=== PATIENT | male | born 1980 | race Caucasian/White ===

== ENCOUNTER 2016-09-29 09:46 | Inpatient (IN) | payer OTHER ==
[~2016-09-29] VITALS: Ht 190.5 cm; Wt 166.7 kg
--- NOTE | ~2016-09-29 | HC ---
[facility] [place] [address] CONSULTATION Name: SILVANOBRENT BOSTON Room #: 437-P ADM IN M.R.#: [id number] Admission: 09/29/16 Attend Phys: Lisandra Castillo MD Discharge: Date of : 84 Report #: [id number] THIS REPORT FOR: //name// CC: Lisandra Mullins REASON FOR CONSULTATION: I was asked to evaluate concerning complicated left lung pneumonia. HISTORY OF PRESENT ILLNESS: The patient was a 36-year-old diagnosed with community-acquired pneumonia on 09/25/2016 at [facility]. He noted that 2 weeks prior to this, he has had what he felt was the flu fluid with low grade fever for a day, associated with a nonproductive cough. He did improve from this only to have acute worsening on 09/25/2016 with shortness of breath and pleuritic chest pain. It was noted that his had similar symptoms at the onset with upper respiratory tract infection. He has had no travel. No HIV risk factors. He has had no immunizations for flu or pneumonia. No tuberculosis exposure. Following his hospitalization, he was placed on azithromycin and ceftriaxone. I do not have any microbiology reports. His white count was 26,000 and it came down to around 16,000. CT scan at the onset showed bilateral basilar infiltrates greatest on the left. Subsequent chest x-ray showed marked worsening involving the left lung infiltrate associated with an effusion developing. Because of this, he was transferred for further care. Currently, he has 2 liters of oxygen per nasal cannula. He has cough with light color tracheal secretions and no hemoptysis. He is limited in his breathing due to his left chest discomfort. No nausea, vomiting or diarrhea. No dysuria or frequency. No rash. No arthritis. He has had no trauma. ALLERGIES: None. MEDICATIONS: Now include vancomycin, Zosyn and azithromycin. PAST MEDICAL HISTORY: Cholecystectomy, hypothyroidism. FAMILY HISTORY: Noncontributory. SOCIAL HISTORY: Nonsmoker, no significant alcohol intake, details as noted above. REVIEW OF SYSTEMS: Noted above. PHYSICAL EXAMINATION: GENERAL: He is alert and cooperative, sitting up to the side of his bed. He was uncomfortable. He was on oxygen per nasal cannula. He was short of breath [address] [address] CONSULTATION Name: BRENT SCHAEFER Room #: 437-P [facility] IN M.R.#: [id number] Admission: 09/29/16 Attend Phys: Lisandra Castillo MD Discharge: Date of : 84 Report #: [id number] with activity and had pain in his left chest when he tried to move around in bed. HEENT: Unremarkable. NECK: Supple. He was obese. No adenopathy. LUNGS: Decreased breath sounds in the left base posteriorly associated with consolidation in the mid and lower lobe. HEART: Regular, without murmur. ABDOMEN: Obese, soft, nontender, no hepatosplenomegaly or mass. EXTREMITIES: Unremarkable. LABORATORY STUDIES: Sodium 135, potassium 4.7, bicarbonate 31, creatinine 0.9. Liver function test normal. Hemoglobin 12.6, white count 15.8, platelet count was 376,000. IMPRESSION: A 36-year-old with community acquired pneumonia, now complicated with a left pleural effusion, I suspect of empyema. PLAN: Would recommend continuing his IV antibiotic therapy. We will obtain sputum culture. We will image his chest and pleural space. If there is a fluid collection amenable to aspiration, we will do that today and send the fluid off for urinalysis and culture. He also be screened for HIV and immunoglobulins. Have urine antigens tested as well as fungal serology. <ELECTRONICALLY SIGNED> By: Carson Sawant MD 09/30/16 1115 [id number] [id number] Carson Sawant MD /nt
--- NOTE | ~2016-09-29 | O ---
[facility] [place] [address] OPERATIVE REPORT Name: BRENT SCHAEFER Room #: 214-P [facility] IN M.R.#: [id number] Admission: 09/29/16 Attend Phys: Lisandra Castillo MD Discharge: 10/04/16 Date of : 84 Report #: [id number] THIS REPORT FOR: //name// CC: Lisandra Castillo Dottie Chingabriel DATE OF SERVICE: 09/30/2016 PREOPERATIVE DIAGNOSIS: Empyema, left chest. POSTOPERATIVE DIAGNOSIS: Empyema, left chest. OPERATION: Bronchoscopy, left video-assisted thoracoscopy, left thoracotomy with decortication. SURGEON: Denny Rhodes MD PRIME MINISTER: Gerard. ANESTHESIA: General. INDICATION: The patient is a 36-year-old with loculated left pleural effusion. The patient presents with increasing shortness of breath and fatigue and is clearly symptomatic from this. FINDINGS AND TECHNIQUE: After general anesthesia was established, flexible diagnostic bronchoscopy was performed. Some inflammatory changes were seen, but no specific endobronchial lesions were noted. A double lumen endotracheal tube was placed and the patient was positioned with left side up. Exposure was obtained through typical video-assisted thoracoscopy ports. Although there was a mix of fluid and gel in the chest, it was clear that a more aggressive exposure would be needed to fully decorticate the lung. Therefore, exposure was extended to perform a posterolateral thoracotomy. Chest was entered through available interspace. The gelatinous serofibrinous fluid was removed from the chest and then the lung itself was decorticated. The lung was raw beneath the layer of fibrinous debris on the lung that was entrapping the lung. Both upper and lower lobes were decorticated in their entirety and when we were satisfied that the decortication was satisfactory, chest was irrigated with copious amounts of warm saline. Four chest tubes were then placed to drain the anterior, lateral, posterior, and inferior pleural surfaces and then the chest was closed in layers. The patient [address] [address] OPERATIVE REPORT Name: BRENT SCHAEFER Room #: 214-[facility] IN .R.#: [id number] Admission: 09/29/16 Attend Phys: Lisandra Castillo MD Discharge: 10/04/16 Date of : 84 Report #: [id number] tolerated the procedure well and was taken to the recovery area in good condition. All counts reported as correct. <ELECTRONICALLY SIGNED> By: Denny Rhodes MD 10/10/161947 19 16 Denny Rhodes MD /nt
--- NOTE | ~2016-09-29 | HC ---
[facility] [place] [address] CONSULTATION Name: BRENT SCHAEFER Room #: 214-[facility] IN M.R.#: [id number] Admission: 09/29/16 Attend Phys: Lisandra Castillo MD Discharge: 10/04/16 Date of : 84 Report #: [id number] THIS REPORT FOR: //name// CC: Lisandra Mullins DATE OF SERVICE: 09/29/2016 REASON FOR CONSULTATION: Pleural effusion. IMPRESSION: 1. Pleural effusion. 2. Pneumonia. 3. Leukocytosis. 4. Pleuritic pain. 5. Protein calorie malnutrition. 6. History of hypothyroidism. 7. Normocytic anemia. PLAN: Ultrasound-guided thoracentesis on left with empyema, we will consult thoracic surgery, may need chest tube placement. We will enlist the help of ID at this point also. We will do DVT prophylaxis. HISTORY OF PRESENT ILLNESS: This is a very pleasant 36-year-old male admitted to [facility] on September 25. Had hemoptysis 2-3 weeks back. Had a fluid like syndrome. Had been experiencing left chest pain, nausea, decreased appetite. Recently no hemoptysis, comes in now with progressive shortness of breath and found to have increasing left effusion. Positive fever, no chills, some sputum production. PAST MEDICAL HISTORY: MEDICATIONS: Include levothyroxine. PAST SURGICAL HISTORY: Include cholecystectomy. SOCIAL HISTORY: Negative tobacco. FAMILY HISTORY: No early lung disease. REVIEW OF SYSTEMS: Fever, chills, shortness of breath, cough, pleuritic pain. Positive nausea. No dysuria. No weakness or altered mental status. PHYSICAL EXAMINATION: VITAL SIGNS: Not in computer. EYES: Negative icterus. [facility] [address] [place] [address] CONSULTATION Name: BRENT SCHAEFER Room #: 214-P [facility] IN .R.#: [id number] Admission: 09/29/16 Attend Phys: Lisandra Castillo MD Discharge: 10/04/16 Date of : 84 Report #: [id number] NECK: Trachea midline. Neck is nontender. LUNGS: Showed decreased breath sounds, left base with illness. ABDOMEN: Regular. EXTREMITIES: Showed no calf tenderness. NEUROLOGIC: He is alert and oriented. LABORATORY DATA: White count 15.8, hemoglobin 12.6, platelets 376. No bands. INR 1.1. BUN 12, creatinine 0.9, albumin 2.5. CT PE on the showed no central emboli, bilateral infiltrates, left greater than right, prominent hilar lymph nodes. We will follow closely with you. <ELECTRONICALLY SIGNED> By: Nic Valerio MD 10/12/16 0702 1313 0124 Nic Valerio MD /nt
--- NOTE | ~2016-09-29 | S ---
[facility] [place] [address] SURGICAL PATH RPT PROCEDURE Name: BRENT DOE [facility] Room #: 214-P ADM IN M.R.#: [id number] Admission: 09/29/16 Date of : 84 Discharge: Report #: [id number] Path Case #: [id number] PATHOLOGY REPORT COLLECTION DATE: 09/30/2016 RECEIVED DATE: 10/01/2016 SUBMITTING PHYS: Dr. Denny Rhodes OTHER PHYS: Dr. Lisandra Mullins SPECIMEN(S) RECEIVED: A.Left pleural peel * * * * * * * * * * * * FINAL DIAGNOSIS: Left pleural peel: - 14.0 cm of pleural tissue with acute inflammation, consistent with empyema. - Negative for malignancy. (IUV:csd; d/t: 10/02/2016) PATHOLOGIST: Carina Jacques M.D. REPORT ELECTRONICALLY SIGNED BY: Carina Jacques M.D. DATE/TIME: 10/02/2016 16:12 * * * * * * * * * * * * GROSS PATHOLOGY: The specimen is received in formalin, labeled "Brent Doe and left pleural peel." Received is a 14.0 x 12.5 x 2.8 cm aggregate of blood-tinged, white-giron, membranous, rubbery, and necrotic-appearing soft tissue. The specimen is serially sectioned and representatively submitted in cassette A1. (TTL; 10/01/2016) CLINICAL HISTORY: Shortness of breath INITIAL CPT CODE(S): 56529 Professional services performed by [facility] at [facility] [address], [place] [address] Technical services performed by [facility] at [address] [place] [address] [address] [address]. [facility] [address] [place] [address] SURGICAL PATH RPT PROCEDURE Name: BRENT DOE Room #: 214-P ADM IN M.R.#: [id number] Admission: 09/29/16 Date of : 84 Discharge: Report #: [id number] Path Case #: [id number] [place] [id number] [address] [address] PHONE: [phone] DIRECTOR: Kostas Licea M.D. * * * END OF REPORT * * *
--- NOTE | ~2016-09-29 | HC ---
[facility] [place] [address] CONSULTATION Name: SILVANOBRENT BOSTON Room #: 214-P ADM IN M.R.#: [id number] Admission: 09/29/16 Attend Phys: Lisandra Castillo MD Discharge: Date of : 84 Report #: [id number] THIS REPORT FOR: //name// CC: Lisandra Mullins DATE OF SERVICE: 09/30/2016 HISTORY OF PRESENT ILLNESS: We were asked to see the patient this by Dr. Valerio. The patient is a 36-year-old with an organized left pleural effusion. The patient states that approximately 2 weeks ago he presented with flu-like symptoms to his local doctor. Only symptomatic treatment was given. The patient had some improvement, but had a serious recrudescence this past week when he presented to the hospital with cough, shortness of breath and left pleuritic pain. The patient was initially seen at [place] and was transferred to this facility. A CT scan yesterday showed a loculated pleural effusion. Thoracentesis was ordered, but not done because of a "complex pleural effusion". PAST MEDICAL HISTORY: Significant for hypothyroidism. The patient denies chronic disease, such as hypertension and diabetes mellitus. MEDICATIONS: At home includes Thyroxine. ALLERGIES: None known. SOCIAL HISTORY: Negative for tobacco use. 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 REVIEW OF SYSTEMS: CONSTITUTIONAL: Positive for fever and chills. HEENT: No headache, no vision changes, no hearing changes and no sore throat. CHEST: Affirmative for shortness of breath, cough, some sputum production and left chest pain of pleuritic nature. CARDIAC: As mentioned, chest pain of pleuritic nature. No palpitations. GASTROINTESTINAL: Positive for nausea and some lack of appetite. No vomiting, no diarrhea and no constipation. GENITOURINARY: No dysuria or hematuria. MUSCULOSKELETAL: No bone or joint dysfunction. NEUROLOGIC: No motor or sensory dysfunction. HEMATOLOGIC: No anemia or swelling. IMMUNOLOGIC: No rheumatoid arthritis. No lupoid rash. ENDOCRINE: No hot or cold intolerance. He is treated for hypothyroidism. PHYSICAL EXAMINATION: VITAL SIGNS: Temperature 36.7, pulse rate 86, respiratory rate 20, blood [facility] [address] [place] [address] CONSULTATION Name: BRENT SCHAEFER Room #: 214-P [facility] IN [facility].#: [id number] Admission: 09/29/16 Attend Phys: Lisandra Castillo MD Discharge: Date of : 84 Report #: [id number] pressure 158/94 and O2 sat 97. HEENT: No scleral icterus. No arcus. NECK: No mass, no bruit. CHEST: Decreased breath sounds, left chest. HEART: Rhythm regular. ABDOMEN: Soft. No mass, no tenderness. EXTREMITIES: No clubbing, cyanosis or edema. IMPRESSION: The patient has a loculated left pleural effusion that probably represents empyema. I have discussed the risks and details of bronchoscopy, video-assisted thoracoscopy and thoracotomy with decortication. Options and alternatives were reviewed. The patient understands all of this and he agrees with this approach. I will discuss timing with Dr. Valerio and check availability in the operating room. Thank you for the consult. <ELECTRONICALLY SIGNED> By: Denny Rhodes MD 10/03/162009 0910 1247 Denny Rhodes MD /nt
[2016-09-29] MEDS ORDERED: LEVOTHYROXIN0.075 MG PO (11:05)
[2016-09-29 12:00] VITALS: BP 155/67
[2016-09-29 12:46] LABS: HEMATOCRIT 37.9 % (42.0-52.0); HEMOGLOBIN 12.6 gm/dL (14.0-18.0); MCH 29.4 pg (26.0-34.0); MCHC 33.1 g/dL (28.0-37.0); MCV 88.8 fL (80.0-100.0); PLATELET COUNT 376 thou/uL (150-400); RBC 4.27 mil/uL (4.50-6.00); RDW 14.5 % (10.5-14.5); WBC 15.8 thou/uL (4.0-11.0)
[2016-09-29 12:47] LABS: MANUAL DIFF YES
[2016-09-29 12:55] LABS: CREATININE 0.9 mg/dL (0.6-1.3); POTASSIUM 4.7 mmol/L (3.5-5.1)
[2016-09-29 13:00] LABS: ALBUMIN 2.5 g/dL (3.4-5.0); TOTAL BILIRUBIN 0.6 mg/dL (<0.1-1.0); TOTAL PROTEIN 7.8 g/dL (6.4-8.2)
[2016-09-29 13:01] LABS: APTT 34.8 Seconds (24.5-32.8); INR 1.1; PROTIME 11.7 Seconds (9.3-11.4)
[2016-09-29 13:08] LABS: ABSOLUTE NEUTROPHILS 11.5 thou/uL (1.4-8.2); TOTAL CELL COUNT 100
[2016-09-29 16:00] VITALS: BP 144/62
[2016-09-29 16:13] LABS: HEMATOCRIT 38.6 % (42.0-52.0); HEMOGLOBIN 12.8 gm/dL (14.0-18.0); MCH 29.3 pg (26.0-34.0); MCHC 33.2 g/dL (28.0-37.0); MCV 88.2 fL (80.0-100.0); PLATELET COUNT 370 thou/uL (150-400); RBC 4.38 mil/uL (4.50-6.00); RDW 14.2 % (10.5-14.5); WBC 16.1 thou/uL (4.0-11.0)
[2016-09-29 16:15] LABS: MANUAL DIFF YES
[2016-09-29 16:26] LABS: CREATININE 0.7 mg/dL (0.6-1.3); POTASSIUM 4.7 mmol/L (3.5-5.1)
[2016-09-29 16:42] LABS: ABSOLUTE NEUTROPHILS 11.9 thou/uL (1.4-8.2); TOTAL CELL COUNT 100
[2016-09-29 19:32] VITALS: BP 137/57
[2016-09-29 21:08] LABS: IgA 278 mg/dL (90-386); IgG 1077 mg/dL (700-1600); IgM 121 mg/dL (20-172)
[2016-09-30 00:01] VITALS: BP 141/61
[2016-09-30 04:30] VITALS: BP 150/66
[2016-09-30 05:35] LABS: HIV ANTIBODY Non Reactive (Non Reactive)
[2016-09-30 08:00] VITALS: BP 158/94
[2016-10-01 05:04] LABS: HEMATOCRIT 34.6 % (42.0-52.0); HEMOGLOBIN 11.7 gm/dL (14.0-18.0); MCH 29.5 pg (26.0-34.0); MCHC 33.7 g/dL (28.0-37.0); MCV 87.5 fL (80.0-100.0); PLATELET COUNT 340 thou/uL (150-400); RBC 3.95 mil/uL (4.50-6.00); RDW 14.2 % (10.5-14.5); WBC 18.9 thou/uL (4.0-11.0)
[2016-10-01 05:11] LABS: CALCIUM 8.1 mg/dL (8.5-10.1); CREATININE 0.8 mg/dL (0.6-1.3); POTASSIUM 4.8 mmol/L (3.5-5.1)
[2016-10-01 06:20] LABS: MANUAL DIFF YES
[2016-10-01 08:24] LABS: ABSOLUTE NEUTROPHILS 11.9 thou/uL (1.4-8.2); TOTAL CELL COUNT 100
[2016-10-01 13:15] VITALS: BP 129/62
[2016-10-01 19:51] VITALS: BP 142/89
[2016-10-01 23:58] VITALS: BP 130/73
[2016-10-02 03:19] VITALS: BP 129/74
[2016-10-02 07:31] VITALS: BP 121/69
[2016-10-02 07:34] VITALS: BP 121/69
[2016-10-02 11:16] VITALS: BP 116/60
[2016-10-02 16:14] VITALS: BP 135/81
[2016-10-02 17:09] LABS: HISTOPLASMA-IMMUNODIFF Negative (Neg:<1:1)
[2016-10-02 20:29] VITALS: BP 117/62
[2016-10-02 23:08] LABS: INFLUENZA B Negative (Negative); METAPNEUMOVIRUS Negative (Negative)
[2016-10-03 00:02] VITALS: BP 108/64
[2016-10-03 02:51] VITALS: BP 130/72
[2016-10-03 06:17] LABS: HEMATOCRIT 30.5 % (42.0-52.0); HEMOGLOBIN 10.2 gm/dL (14.0-18.0); MCH 29.4 pg (26.0-34.0); MCHC 33.4 g/dL (28.0-37.0); MCV 87.9 fL (80.0-100.0); RBC 3.47 mil/uL (4.50-6.00); RDW 14.3 % (10.5-14.5); WBC 10.9 thou/uL (4.0-11.0)
[2016-10-03 06:26] LABS: CALCIUM 8.4 mg/dL (8.5-10.1); CREATININE 0.7 mg/dL (0.6-1.3); POTASSIUM 3.9 mmol/L (3.5-5.1)
[2016-10-03 07:32] VITALS: BP 124/66
[2016-10-03 12:08] VITALS: BP 141/79
[2016-10-03 16:00] VITALS: BP 119/71
[2016-10-03 18:06] LABS: ASPERGILLUS FLAVUS-ID Negative (Neg:<1:1); ASPERGILLUS FUMIGATUS-ID Negative (Neg:<1:1); ASPERGILLUS NIGER-ID Negative (Neg:<1:1); BLASTOMYCES-IMMUNODIFF Negative (Neg:<1:1)
[2016-10-03 19:45] VITALS: BP 144/80
[2016-10-04 03:54] LABS: HEMOGLOBIN 10.6 gm/dL (14.0-18.0); MCH 29.4 pg (26.0-34.0); MCHC 33.3 g/dL (28.0-37.0); MCV 88.5 fL (80.0-100.0); PLATELET COUNT 312 thou/uL (150-400); RBC 3.61 mil/uL (4.50-6.00); RDW 14.1 % (10.5-14.5)
[2016-10-04 04:01] LABS: MANUAL DIFF YES
[2016-10-04 04:04] LABS: ALBUMIN 1.9 g/dL (3.4-5.0); CALCIUM 8.5 mg/dL (8.5-10.1); CREATININE 0.7 mg/dL (0.6-1.3); MAGNESIUM 1.8 mg/dL (1.8-2.4); TOTAL BILIRUBIN 0.5 mg/dL (<0.1-1.0); TOTAL PROTEIN 6.8 g/dL (6.4-8.2)
[2016-10-04 04:45] VITALS: BP 130/74
[2016-10-04 05:22] LABS: ABSOLUTE NEUTROPHILS 6.2 thou/uL (1.4-8.2); METAMYELOCYTES 1 %; TOTAL CELL COUNT 100
[2016-10-04 07:16] VITALS: BP 148/64
[2016-10-04] MEDS ORDERED: HYDROCODON-ACE1 EAC7 PO (09:16)
[2016-10-04] MEDS ORDERED: CEFUROXIME500 MG PO (10:35)
[2016-10-04 10:54] VITALS: BP 148/64
[2016-10-04 11:04] VITALS: BP 148/64
[2016-10-04 11:29] VITALS: BP 139/57
== END 2016-10-04 13:05 | disposition home or self-care (01) | DRG 853 ==
LOC: 4S 09:46 → 2N 10:56 → 4S 10:56 → ICU 10:56 → 2N 10-01 11:54
PROVIDERS: Family Medicine; Internal Medicine Pulmonary Disease; Nurse Practitioner; Specialist; Surgery Vascular Surgery
PROC: 0BDP4ZZ Extraction of Left Pleura, Percutaneous Endoscopic Approach (ICD-10-PCS; principal; 2016-10-03)
PROC: 0BJ08ZZ Inspection of Tracheobronchial Tree, Via Natural or Artificial Opening Endoscopic (ICD-10-PCS; principal; 2016-10-03)
DX: A41.9 Sepsis, unspecified organism (principal); J18.9 Pneumonia, unspecified organism; J86.9 Pyothorax without fistula; J90 Pleural effusion, not elsewhere classified; E44.0 Moderate protein-calorie malnutrition; E87.1 Hypo-osmolality and hyponatremia; Z68.42 Body mass index [BMI] 45.0-49.9, adult; Z53.8 Procedure and treatment not carried out for other reasons; E03.9 Hypothyroidism, unspecified; D64.9 Anemia, unspecified; E66.9 Obesity, unspecified; Z90.49 Acquired absence of other specified parts of digestive tract
CPT/HCPCS: 10078; 10081; 10195; 47405; 50010; 50101; 50386; 50417; 50455; 50497; 51048; 51301; 51717; 52265; 54118; 56525; 56526; 56527; 56531; 62110; 62900; 65002; 65020; 65040; 65105; 70005

== ENCOUNTER → 2016-10-18 | Outpatient (CLI) | payer OTHER ==
[~2016-10-18] MED LIST: CEFUROXIME500 MG PO; HYDROCODON-ACE1 EAC7 PO; LEVOTHYROXIN0.075 MG PO
== END ==
LOC: RAD 12:57
DX: J98.11 Atelectasis (principal)

== ENCOUNTER → 2018-11-29 | Outpatient (CLI) | payer OTHER ==
--- NOTE | 2018-11-30 20:43 | SLE ---
[facility] [place] [address] POLYSOMNOGRAPHY STUDY Name: BRENT SCHAEFER Room #: [facility]#: [id number] Admission: 11/29/18 ������������������ Attend Phys: Pacheco An MD Discharge: ������������������ Date of : 84 Report #: [id number] THIS REPORT FOR: //name// CC: Osito An [facility] unknown DATE OF SERVICE: 11/29/2018 ATTENDING PHYSICIAN: Osito Nolasco MD. The patient is a 38-year-old who weighs 360 pounds with a BMI of 45. The patient's Essie score was 13. The patient had a home sleep study and was found to have severe QAMAR at an AHI of 74 per hour. In addition, the patient also has severe nocturnal hypoxia. As a result, the patient was referred for in-lab CPAP titration study. During the night study, the patient spent 433 minutes in bed and slept for 415 minutes with a sleep efficiency of 95%. Sleep latency was 10.9 minutes with a REM latency of 58.9 minutes. Overall, sleep architecture showed a normal stage 1 sleep, increased stage 2 sleep, reduced N3 sleep and increased REM sleep. EKG monitoring revealed average heart rate of 60 beats per minute. No sustained arrhythmias observed. Mild PLMs seen at an index of 11 per hour and only 0.1 per hour caused EEG arousals. The patient was started on CPAP at a pressure of 5 cm water and titrated up to 9 cm of water. At a final pressure, the patient slept for 308 minutes. The patient had supine as well as 106 minutes of REM sleep. The patient's AHI was reduced to 1.4 per hour and oxygen saturation remained above 91%. IMPRESSION: 1. Severe sleep apnea diagnosed by home sleep study. 2. No clinically significant periodic limb movements. RECOMMENDATIONS: 1. CPAP at 9 cm of water completely eliminated the patient's sleep apnea and should be used on a nightly basis. 2. Follow up in 4-6 weeks to assess compliance with CPAP and to document clinical improvement. 3. Weight loss is strongly advised. 4. Avoid [employer] SHIFT [employer]ER depressants. [facility] [address] [place] [address] POLYSOMNOGRAPHY STUDY Name: BRENT SCHAEFER Room #: [facility]#: [id number] Admission: 11/29/18 ������������������ Attend Phys: Pacheco An MD Discharge: ������������������ Date of : 84 Report #: [id number] 5. Cautioned regarding driving until symptoms of sleep apnea resolve with the use of CPAP. ��������������������������������������������� <ELECTRONICALLY SIGNED> ���������������������������������������� By: Pacheco An MD ��������������������������������������������� 11/30/18 5053 [id number] Pacheco An MD /nt
== END ==
LOC: SLEEPLAB 11-28 13:56
DX: G47.33 Obstructive sleep apnea (adult) (pediatric) (principal)

== ENCOUNTER 2020-02-15 10:17 | Emergency (ER) | payer OTHER ==
[~2020-02-15] VITALS: Ht 190.5 cm; Wt 170.1 kg
--- NOTE | 2020-02-15 10:48 | EKG ---
[facility] [place] [address] ELECTROCARDIOGRAM REPORT Name: BRENT SCHAEFER Room #: [facility].#: [id number] Admission: Attend Phys: Discharge: Date of : 84 Report #: [id number] THIS REPORT FOR: cc: FAM - Family physician unknown FAM - Family physician unknown Rasheed Call MD ~ THIS REPORT FOR: //name// [facility] ED Test Date: 2020-02-15 Test Time: 10:27:18 Pat Name: BRENT SCHAEFER Department: Room: Gender: M Head Librarian: ARGELIA : 1980 Requested By: Andres Anguiano Order Number: [id number] MD: Rasheed Call Measurements Intervals [place] Rate: 98 P: 38 SD: 131 QRS: -24 QRSD: 99 T: 3 QT: 330 QTc: 422 Interpretive Statements Sinus rhythm Atrial premature complex Borderline left axis deviation No previous ECG available for comparison Electronically Signed On 02-15-2020 10:48:46 CDT by Rasheed Call [email or web address] <ELECTRONICALLY SIGNED> By: Rasheed Call MD 02/15/20 1048 1027 102 Rasheed Call MD /FREDI
[2020-02-15] MEDS ORDERED: LISINOPRIL-HCT1 EAC1 PO (10:57)
[2020-02-15] MEDS ORDERED: LEVO-T100 MCG PO (10:57)
[2020-02-15 10:59] LABS: HEMATOCRIT 52.1 % (42.0-52.0); HEMOGLOBIN 17.3 gm/dL (14.0-18.0); MCH 30.4 pg (26.0-34.0); MCHC 33.1 g/dL (28.0-37.0); MCV 91.9 fL (80.0-100.0); PLATELET COUNT 310 thou/uL (150-400); RBC 5.67 mil/uL (4.50-6.00); RDW 14.2 % (10.5-14.5); WBC 11.1 thou/uL (4.0-11.0)
[2020-02-15] MEDS ORDERED: TORSEMIDE20 MG PO (10:59)
[2020-02-15] MEDS ORDERED: POTASSIUM99 M1 PO (10:59)
[2020-02-15 11:01] LABS: ANION GAP 9 mmol/L (7-16); BUN 24 mg/dL (7-18); CALCIUM 9.1 mg/dL (8.5-10.1); CHLORIDE 101 mmol/L (98-107); CO2 30 mmol/L (21-32); CREATININE 1.2 mg/dL (0.7-1.3); GLUCOSE 102 mg/dL (74-106); POTASSIUM 4.4 mmol/L (3.5-5.1); SODIUM 140 mmol/L (136-145)
[2020-02-15] MEDS ORDERED: CLOMIPHENE CITR50 MG PO (11:01)
[2020-02-15 11:11] LABS: TROPONIN-I <0.06 ng/mL (<0.06)
[2020-02-15 11:54] LABS: ABSOLUTE NEUTROPHILS 7.2 thou/uL (1.4-8.2); ATYPICAL LYMPHS 4 %
[2020-02-15 13:45] VITALS: BP 143/52
== END 2020-02-15 13:45 | disposition home or self-care (01) ==
LOC: ER 10:17
PROVIDERS: Emergency Medicine
DX: R06.02 Shortness of breath (principal); G47.30 Sleep apnea, unspecified; Z90.49 Acquired absence of other specified parts of digestive tract; Z79.899 Other long term (current) drug therapy

== ENCOUNTER → 2020-02-17 | Outpatient (CLI) | payer OTHER ==
[~2020-02-17] MED LIST changes: +CLOMIPHENE CITR50 MG PO; +LEVO-T100 MCG PO; +LISINOPRIL-HCT1 EAC1 PO; +POTASSIUM99 M1 PO; +TORSEMIDE20 MG PO
== END ==
LOC: SJCVCIMAG 02-11 14:52
PROVIDERS: ATTEND Internal Medicine
DX: I51.7 Cardiomegaly (principal)